=== PATIENT | male | born 1980 | race Hispanic/Latino ===

== ENCOUNTER 2018-06-28 11:16 | Emergency (ER) | payer OTHER ==
[2018-06-28 11:26] VITALS: BP 113/66; PULSE 75; RESP 18; TEMP 97
[2018-06-28 11:27] VITALS: BMI 23.6
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
[2018-06-28 12:43] VITALS: O2SAT 100
== END 2018-06-28 12:25 | disposition home or self-care (01) ==
LOC: H.ER 11:16
DX: S09.90XA Unspecified injury of head, initial encounter (principal); S13.4XXA Sprain of ligaments of cervical spine, initial encounter; V43.52XA Car driver injured in collision with other type car in traffic accident, initial encounter; Y92.410 Unspecified street and highway as the place of occurrence of the external cause